=== PATIENT | female | born 1940 | race Asian ===

== ENCOUNTER 2017-04-29 01:02 | Emergency (ER) | payer OTHER ==
[2017-04-29] MEDS ORDERED: ACETAMINOPHEN 325 MG TABLET (FP) ONE (03:08)
--- NOTE | 2017-04-29 03:34 | PDOC ---
History of Present Illness - General History Source: Patient Exam Limitations: No Limitations - History of Present Illness Initial Comments: 04/29/17 03:43 The patient is a 76 year old female, with a significant past medical history of diabetes, hypertension, cardiac disorder, hypercholesterolemia who presents to the emergency department with L ribcage pain s/p mechanical fall. Patient reports falling 2 days ago and since then has been experiencing this pain. Patient reports rib pain is exacerbated upon movement and deep inspiration. Patient denies taking any medication for relief and presents to the ED for further evaluation. Patient denies any head trauma, other injuries. PCP: Rashmi <Rossy Germain - Last Filed: 04/29/17 03:43> - General History Source: Patient <Hernan Caro - Last Filed: 04/29/17 05:25> - General Stated Complaint: PAIN ON LEFT SIDE Time Seen by Provider: 04/29/17 03:28 Past History <Rossy Germain - Last Filed: 04/29/17 03:43> - Past Medical History Anemia: No Asthma: No Cancer: No Cardiac Disorders: Yes CVA: No COPD: No CHF: No Diabetes: Yes GI Disorders: No Disorders: No HTN: Yes Hypercholesterolemia: Yes Liver Disease: No Seizures: No Thyroid Disease: No - Surgical History Abdominal Surgery: Yes Appendectomy: No Cardiac Surgery: Yes ([facility] [place] 1993) Cholecystectomy: No Lung Surgery: No Neurologic Surgery: No Orthopedic Surgery: No - Suicide/Smoking/Psychosocial Hx Smoking History: Never smoked Have you smoked in the past 12 months: No Hx Alcohol Use: No Drug/Substance Use Hx: No Substance Use Type: None Hx Substance Use Treatment: No <Hernan Caro - Last Filed: 04/29/17 05:25> - Past Medical History Allergies/Adverse Reactions: Allergies Allergy/AdvReac Type Severity Reaction Status Date / Time No Known Allergies Allergy Verified 09/03/15 05:06 Home Medications: Ambulatory Orders Alendronate Sodium 70 mg PO ASDIR 08/19/15 Ezetimibe [Zetia] 10 mg PO DAILY 08/19/15 Glimepiride 4 mg PO DAILY 08/19/15 Metformin HCl 500 mg PO TID 08/19/15 Metoprolol Succinate [Toprol XL -] 25 mg PO DAILY 08/19/15 Ranolazine [Ranexa -] 500 mg PO BID 08/19/15 Valsartan 40 mg PO DAILY 08/19/15 Ondansetron [Zofran -] 4 mg PO BID PRN #10 tablet 09/03/15 Ibuprofen [Motrin] 600 mg PO TID #30 tablet 04/29/17 Oxycodone HCl/Acetaminophen [Percocet 5-325 mg Tablet] 1 - 2 tab PO Q6H #20 tablet MDD 4 04/29/17 Review of Systems - Review of Systems Able to Perform ROS?: Yes Comments:: 04/29/17 03:43 CONSTITUTIONAL: Absent: fever, chills, diaphoresis, generalized weakness, malaise, loss of appetite HEENT: Absent: rhinorrhea, nasal congestion, throat pain, throat swelling, difficulty swallowing, mouth swelling, ear pain, eye pain, visual Changes CARDIOVASCULAR: Absent: chest pain, syncope, palpitations, irregular heart rate, lightheadedness , peripheral edema RESPIRATORY: Absent: cough, shortness of breath, dyspnea with exertion, orthopnea, wheezing, stridor, hemoptysis GASTROINTESTINAL: Absent: abdominal pain, abdominal distension, nausea, vomiting, diarrhea, constipation, melena, hematochezia GENITOURINARY: Absent: dysuria, frequency, urgency, hesitancy, hematuria, flank pain, genital pain MUSCULOSKELETAL: +L ribcage pain. Absent: myalgia, arthralgia, joint swelling SKIN: Absent: rash, itching, pallor HEMATOLOGIC/IMMUNOLOGIC: Absent: easy bleeding, easy bruising, lymphadenopathy, frequent infections ENDOCRINE: Absent: unexplained weight gain, unexplained weight loss, heat intolerance, cold intolerance NEUROLOGIC: Absent: headache, focal weakness or paresthesias, dizziness, unsteady gait, seizure, mental status changes, bladder or bowel incontinence PSYCHIATRIC: Absent: anxiety, depression, suicidal or homicidal ideation, hallucinations. <Rossy Germain - Last Filed: 04/29/17 03:43> *Physical Exam - Vital Signs Last Vital Signs Temp Pulse Resp BP Pulse Ox 98.5 F 74 18 133/75 100 04/29/17 03:35 04/29/17 03:35 04/29/17 03:35 04/29/17 03:35 04/29/17 03:35 - Physical Exam Comments: 04/29/17 03:43 GENERAL: Well developed, well nourished. Awake and alert. In no acute distress. HEENT: Normocephalic, atraumatic. PERRLA, EOMI. No conjunctival pallor. Sclerae are non -icteric. Moist mucous membranes. Oropharynx is clear. NECK: Supple. Full ROM. No JVD. Carotid pulses 2+ and symmetric, without bruits. No thyromegaly. No lymphadenopathy. CARDIOVASCULAR: Regular rate and rhythm. No murmurs, rubs, or gallops. Distal pulses are 2+ and symmetric. PULMONARY: No evidence of respiratory distress. Lungs clear to auscultation bilaterally. No wheezing, rales or rhonchi. ABDOMINAL: Soft. Non-tender. Non-distended. No rebound or guarding. No organomegaly. Normoactive bowel sounds. MUSCULOSKELETAL: +Tender on lower L anterior ribs. Normal range of motion at all joints. No bony deformities or tenderness. No CVA tenderness. No pelvic rock. EXTREMITIES: No cyanosis. No clubbing. No edema. No calf tenderness. SKIN: Warm and dry. Normal capillary refill. No rashes. No jaundice. NEUROLOGICAL: Alert, awake, appropriate. Cranial nerves 2-12 intact. No deficits to light touch and temperature in face, upper extremities and lower extremities. No motor deficits in the in face, upper extremities and lower extremities. Normoreflexic in the upper and lower extremities. Normal speech. Toes are downgoing bilaterally. Gait is normal without ataxia. PSYCHIATRIC: Cooperative. Good eye contact. Appropriate mood and affect. <Rossy Germain - Last Filed: 04/29/17 03:43> ED Treatment Course - LABORATORY CBC & Chemistry Diagram: 04/29/17 04:40 04/29/17 03:45 <Hernan Caro - Last Filed: 04/29/17 05:25> Medical Decision Making - Medical Decision Making 04/29/17 05:25 Dr. Caro: The scribe's documentation has been prepared under my direction and personally reviewed by me in its entirery. I confirm that the note above accurately reflects all work, treatment, procedures, and medical decision making performed by me. <Hernan Caro - Last Filed: 04/29/17 05:25> *DC/Admit/Observation/Transfer - Attestations Scribe Attestion: 04/29/17 03:43 Documentation prepared by Rossy Germain, acting as biomedical equipment support specialist for Hernan Caro DO. <Rossy Germain - Last Filed: 04/29/17 03:43> - Discharge Dispostion Admit: No <Hernan Caro - Last Filed: 04/29/17 05:25> Diagnosis at time of Disposition: Closed rib fracture Qualifiers: Encounter type: initial encounter Rib fracture type: single rib Laterality: left Qualified Code(s): S22.32XA - Fracture of one rib, left side, initial encounter for closed fracture; S22.32XA - Fracture of one rib, left side, initial encounter for closed fracture - Discharge Dispostion Disposition: HOME Condition at time of disposition: Stable - Prescriptions Prescriptions: Oxycodone HCl/Acetaminophen [Percocet 5-325 mg Tablet] 1 - 2 tab PO Q6H #20 tablet MDD 4 - Referrals Referrals: Aisha Hoskins MD [Primary Care Provider] - - Patient Instructions Printed Discharge Instructions: DI for Rib Fracture Additional Instructions: take medication as directed. Occasionally take a deep breath to prevent a pneumonia. Return as needed or follow up with your docotr
[2017-04-29] MEDS ORDERED: morphine CARPU-JECT 2 MG/1 ML DISP.SYRIN IVPUSH ONE (03:35)
[2017-04-29] MEDS ORDERED: ONDANSETRON 4 MG/2 ML VIAL IVPUSH STA (03:35)
[2017-04-29 03:41] VITALS: BP 133/75; PULSE 74; TEMP 98.5; BMI 21.9
[2017-04-29] MEDS ORDERED: morphine CARPU-JECT 10 MG/1 ML DISP.SYRIN ONE (03:44)
[2017-04-29] MEDS ORDERED: ONDANSETRON 4 MG/2 ML VIAL ONE (03:46)
[2017-04-29 04:18] LABS: ALBUMIN 3.6 g/dl (3.4-5.0); ALK PHOS 61 U/L (45-117); ANION GAP 15 (8-16); BILIRUBIN,TOTAL 0.2 mg/dL (0.2-1.0); CALCIUM 8.5 mg/dL (8.5-10.1); CO2 20 mmol/L (21-32); CREATININE 0.9 mg/dL (0.55-1.02); GLUCOSE,RANDOM 182 mg/dL (74-106); SGPT/ALT 19 U/L (12-78); TOT PROT 6.6 g/dl (6.4-8.2)
[2017-04-29 04:21] LABS: SGOT/AST 18 U/L (15-37)
[2017-04-29 05:03] LABS: BASOPHIL 0.6 % (0-2.0); EOSINOPHIL 1.7 % (0-4.5); MCH 32.2 pg (25.7-33.7); MCHC 34.2 g/dl (32.0-36.0); MEAN CELL VOLUME 94.2 fl (80-96); MEAN PLT VOLUME 8.5 fl (7.5-11.1); NEUTROPHILS 63.1 % (42.8-82.8); PLATELET COUNT 207 K/MM3 (134-434); RDW 12.5 % (11.6-15.6); WHITE BLOOD COUNT 7.6 K/mm3 (4.0-10.0)
[2017-04-29 05:14] LABS: INR 0.89 (0.82-1.09); PROTHROMBIN TIME (PATIENT) 10.1 SEC (9.98-11.88)
--- NOTE | 2017-05-02 09:09 | EKG ---
Test Reason : Blood Pressure : / mmHG Vent. Rate : 074 BPM Atrial Rate : 074 BPM P-R Int : 000 ms QRS Dur : 094 ms QT Int : 396 ms P-R-T Axes : -23 -14 045 degrees QTc Int : 439 ms SINUS RHYTHM WITH SHORT OH POSSIBLE ANTERIOR INFARCT , AGE UNDETERMINED ABNORMAL ECG WHEN COMPARED WITH ECG OF 19-AUG-2015 11:19, [place] INTERVAL HAS DECREASED INCOMPLETE RIGHT BUNDLE BRANCH BLOCK IS NO LONGER PRESENT NONSPECIFIC T WAVE ABNORMALITY HAS REPLACED INVERTED T WAVES IN INFERIOR LEADS Confirmed by JORGE LEMON, TRACI ([id number]) on 05/02/2017 9:08:30 AM Referred By: Confirmed By:TRACI PATEL MD
== END 2017-04-29 05:50 | disposition home or self-care (01) ==
LOC: JER 01:02
PROC: 3E033NZ Introduction of Analgesics, Hypnotics, Sedatives into Peripheral Vein, Percutaneous Approach (ICD-10-PCS; principal; 2017-04-29)
PROC: 3E033GC Introduction of Other Therapeutic Substance into Peripheral Vein, Percutaneous Approach (ICD-10-PCS; 2017-04-29)
DX: S22.32XA Fracture of one rib, left side, initial encounter for closed fracture (principal); W19.XXXA Unspecified fall, initial encounter; Y93.89 Activity, other specified; Y92.89 Other specified places as the place of occurrence of the external cause; Y99.8 Other external cause status; I25.10 Atherosclerotic heart disease of native coronary artery without angina pectoris; I10 Essential (primary) hypertension; Z95.1 Presence of aortocoronary bypass graft; E11.9 Type 2 diabetes mellitus without complications; Z79.84 Long term (current) use of oral hypoglycemic drugs; E78.00 Pure hypercholesterolemia, unspecified
CPT/HCPCS: 36415; 71250-TC; 74176-TC; 80053; 85025; 85610; 93005; 93010; 99281-25

== ENCOUNTER → 2023-12-09 | Day surgery (SDC) | payer OTHER | END | disposition home or self-care (01) | LOC: JRADIR 10:13 | PROVIDERS: ATTEND Internal Medicine Endocrinology, Diabetes & Metabolism | PROC: 0GBG3ZX Excision of Left Thyroid Gland Lobe, Percutaneous Approach, Diagnostic (ICD-10-PCS; principal; 2023-12-09) | DX: E04.1 Nontoxic single thyroid nodule (principal) | CPT/HCPCS: 10005; 76942; 88173; 88305-TC ==

== ENCOUNTER 2024-02-29 22:17 | Observation (INO) | payer OTHER ==
[2024-02-29 22:24] VITALS: BMI 19.8
[2024-02-29] MEDS ORDERED: LABETALOL HCL 20 MG/4 ML VIAL ONE (23:03)
[2024-02-29 23:25] LABS: BASO % 0.4 % (0-2.0); EOS % 0.4 % (0-4.5); HEMATOCRIT 38.8 % (32.4-45.2); HEMOGLOBIN 13.2 GM/dL (10.7-15.3); LYMPH % 12.2 % (8-40); MCH 33.1 pg (25.7-33.7); MCHC 34.2 g/dl (32.0-36.0); MEAN CELL VOLUME 96.7 fl (80-96); MEAN PLT VOLUME 8.7 fl (7.5-11.1); MONO % 5.6 % (3.8-10.2); NEUT % 81.4 % (42.8-82.8); PLATELET COUNT 222 10^3/uL (134-434); RBC 4.01 M/mm3 (3.60-5.2); RDW 12.3 % (11.6-15.6)
[2024-02-29 23:38] LABS: INR 1.04 (0.83-1.09); PROTHROMBIN TIME (PATIENT) 11.9 SEC (9.7-13.0)
[2024-02-29 23:39] LABS: POTASSIUM 4.4 mmol/L (3.5-5.1)
[2024-02-29 23:40] LABS: ACTIVATED PTT 32.2 SECONDS (25.2-36.5)
[2024-02-29 23:41] LABS: CALCIUM 9.2 mg/dL (8.5-10.1)
[2024-02-29 23:42] LABS: ALBUMIN 4.1 g/dl (3.4-5.0); BLOOD UREA NITROGEN 8.8 mg/dL (7-18)
[2024-02-29 23:45] LABS: CREATININE 0.9 mg/dL (0.55-1.3)
[2024-02-29 23:46] LABS: BILIRUBIN,TOTAL 0.8 mg/dL (0.2-1); TOT PROT 7.1 g/dl (6.4-8.2)
[2024-03-01] MEDS: LABETALOL HCL 5 MG/1 ML (100MG/20 ML VIAL) IVPUSH ONE (00:05)
[2024-03-01] MEDS ORDERED: MAGNESIUM SULFATE IN WATER 2 GM/50 ML IVPB IVPB ONE (06:34)
[2024-03-01] MEDS: MAGNESIUM SULF 50% (8.12 MEQ/2 ML-1 GM VIAL) IVPB ONE (06:49)
[2024-03-01] MEDS: SODIUM CHLORIDE 1,000 ML IV SCH (06:49)
[2024-03-01] MEDS: INSULIN ASPART SLIDING SCALE (NOVOLOG) 1 VIAL SQ SCH (07:48)
[2024-03-01] MEDS: LEVOTHYROXINE NA 25 MCG TABLET (FP) PO SCH (07:48)
[2024-03-01 08:18] LABS: HEMATOCRIT 37.7 % (32.4-45.2); HEMOGLOBIN 12.9 GM/dL (10.7-15.3); MCH 33.2 pg (25.7-33.7); MCHC 34.1 g/dl (32.0-36.0); MEAN CELL VOLUME 97.4 fl (80-96); MEAN PLT VOLUME 8.8 fl (7.5-11.1); PLATELET COUNT 221 10^3/uL (134-434); RBC 3.87 M/mm3 (3.60-5.2); RDW 12.2 % (11.6-15.6); WHITE BLOOD COUNT 6.8 K/mm3 (4.0-10.0)
[2024-03-01 08:22] LABS: POTASSIUM 4.1 mmol/L (3.5-5.1)
[2024-03-01 08:42] LABS: CALCIUM 9.2 mg/dL (8.5-10.1)
[2024-03-01 08:43] LABS: ALBUMIN 3.8 g/dl (3.4-5.0); MAGNESIUM 1.8 mg/dL (1.8-2.4)
[2024-03-01 08:46] LABS: CREATININE 0.8 mg/dL (0.55-1.3); PHOSPHOROUS 3.5 mg/dL (2.5-4.9)
[2024-03-01 08:47] LABS: BILIRUBIN,TOTAL 0.8 mg/dL (0.2-1); TOT PROT 6.5 g/dl (6.4-8.2)
[2024-03-01 08:51] LABS: CHOLESTEROL 163 mg/dL (50-200)
[2024-03-01 08:53] LABS: LDL CHOLESTEROL (ONLY SJRH) 74 mg/dL (5-100)
[2024-03-01 08:54] LABS: HDL CHOLESTEROL 75 mg/dL (40-60)
[2024-03-01] MEDS: APIXABAN 5 MG TABLET PO SCH (09:06)
[2024-03-01] MEDS: metoPROLOL SUCCINATE 25 MG TAB.SR.24H (FP) PO SCH (09:06)
[2024-03-01] MEDS: LOSARTAN POTASSIUM 50 MG TABLET PO SCH (09:06)
[2024-03-01 09:11] LABS: URINE APPEARANCE Clear; URINE BILIRUBIN Negative (NEGATIVE); URINE COLOR Yellow; URINE GLUCOSE (UA) 250 (NEGATIVE); URINE KETONE Trace (NEGATIVE); URINE LEUK ESTERASE Negative (NEGATIVE); URINE NITRITE Negative (NEGATIVE); URINE PROTEIN Trace (NEGATIVE)
[2024-03-01 09:12] LABS: EPI CELLS 10 /uL (0-25.1); HYALINE CASTS 0 /uL (0-3.1); URINE BACTERIA 28 /uL (0-1359); URINE RBC 18 /uL (0-23.9); URINE WBC 31 /uL (0-25.8)
[2024-03-01] MEDS ORDERED: ENOXAPARIN NA (PORCINE) 40 MG/0.4 ML DISP.SYRIN SQ SCH (10:00)
[2024-03-01] MEDS: AMIODARONE HCL 100 MG TABLET PO SCH (10:36)
[2024-03-01] MEDS: DONEPEZIL HCL 5 MG TABLET (FP) PO SCH (22:26)
[2024-03-02 08:27] LABS: POTASSIUM 3.8 mmol/L (3.5-5.1)
[2024-03-02 08:30] LABS: BLOOD UREA NITROGEN 12.5 mg/dL (7-18); CALCIUM 8.5 mg/dL (8.5-10.1)
[2024-03-02] MEDS: EZETIMIBE 10 MG TABLET (FP) PO SCH (10:34)
[2024-03-02] MEDS: APIXABAN 2.5 MG TABLET PO SCH (22:49)
[2024-03-03 08:37] LABS: BASO % 0.7 % (0-2.0); EOS % 0.6 % (0-4.5); HEMATOCRIT 38.8 % (32.4-45.2); HEMOGLOBIN 13.2 GM/dL (10.7-15.3); LYMPH % 26.7 % (8-40); MCH 33.3 pg (25.7-33.7); MCHC 33.9 g/dl (32.0-36.0); MEAN PLT VOLUME 8.5 fl (7.5-11.1); MONO % 8.2 % (3.8-10.2); NEUT % 63.8 % (42.8-82.8); PLATELET COUNT 227 10^3/uL (134-434); RBC 3.96 M/mm3 (3.60-5.2); RDW 12.2 % (11.6-15.6); WHITE BLOOD COUNT 6.2 K/mm3 (4.0-10.0)
[2024-03-03 08:54] LABS: POTASSIUM 3.8 mmol/L (3.5-5.1)
[2024-03-03 09:06] LABS: CALCIUM 9.2 mg/dL (8.5-10.1)
[2024-03-03 09:07] LABS: ALBUMIN 3.8 g/dl (3.4-5.0); BLOOD UREA NITROGEN 13.3 mg/dL (7-18)
[2024-03-03 09:10] LABS: CREATININE 0.8 mg/dL (0.55-1.3)
[2024-03-03 09:11] LABS: BILIRUBIN,TOTAL 0.5 mg/dL (0.2-1); TOT PROT 6.8 g/dl (6.4-8.2)
[2024-03-04 08:13] LABS: HEMATOCRIT 34.8 % (32.4-45.2); MCH 33.6 pg (25.7-33.7); MCHC 34.4 g/dl (32.0-36.0); MEAN CELL VOLUME 97.7 fl (80-96); PLATELET COUNT 206 10^3/uL (134-434); RBC 3.56 M/mm3 (3.60-5.2); RDW 12.1 % (11.6-15.6); WHITE BLOOD COUNT 6.5 K/mm3 (4.0-10.0)
[2024-03-04 08:21] LABS: POTASSIUM 4.7 mmol/L (3.5-5.1)
[2024-03-04 08:23] LABS: BLOOD UREA NITROGEN 15.9 mg/dL (7-18); CALCIUM 9.1 mg/dL (8.5-10.1)
[2024-03-04 08:36] LABS: CREATININE 0.7 mg/dL (0.55-1.3)
[2024-03-04 08:48] VITALS: RESP 16
[2024-03-04 15:07] VITALS: BP 147/60; PULSE 60; TEMP 98.2
== END 2024-03-04 18:01 | disposition home or self-care (01) ==
LOC: JER 22:17 → INTOOBSV 03-01 04:27 → UNDOADMOB 03-01 04:27 → JERBED 03-01 04:27 → J4W 03-01 06:52 → JERBED 03-01 06:52 → J4W 03-01 13:35 → JERBED 03-01 13:35
PROVIDERS: ADMIT Internal Medicine; ATTEND Internal Medicine
PROC: 3E013VG Introduction of Insulin into Subcutaneous Tissue, Percutaneous Approach (ICD-10-PCS; principal; 2024-03-01)
PROC: 3E033GC Introduction of Other Therapeutic Substance into Peripheral Vein, Percutaneous Approach (ICD-10-PCS; 2024-03-01)
PROC: 3E0337Z Introduction of Electrolytic and Water Balance Substance into Peripheral Vein, Percutaneous Approach (ICD-10-PCS; 2024-03-01)
DX: I16.0 Hypertensive urgency (principal); I95.1 Orthostatic hypotension; I11.9 Hypertensive heart disease without heart failure; I25.10 Atherosclerotic heart disease of native coronary artery without angina pectoris; E03.9 Hypothyroidism, unspecified; E11.9 Type 2 diabetes mellitus without complications; E78.5 Hyperlipidemia, unspecified; I48.91 Unspecified atrial fibrillation; Z79.01 Long term (current) use of anticoagulants; Z95.0 Presence of cardiac pacemaker; Z86.73 Personal history of transient ischemic attack (TIA), and cerebral infarction without residual deficits
CPT/HCPCS: 0241U-QW; 36415; 70450-TC; 70496-TC; 70498-TC; 71045-TC-FY; 74177-TC; 76705-TC; 80048; 80053; 80061; 81003; 82962; 83036; 83735; 84100; 84443; 84484; 85025; 85027; 85610; 85730; 86850; 86900; 86901; 87086; 93005; 93010; 93306-TC; 93308; 93880-TC; 96361; 96372; 96374; 97116-GP; 97161-GP; 99285-25; G0378

== ENCOUNTER 2024-06-18 14:14 | Inpatient (IN) | payer OTHER ==
[2024-06-18] MEDS: SODIUM CHLORIDE 0.9% 500 ML INFUS.BAG IV ONE ×2 (15:17→16:37)
[2024-06-18 15:18] LABS: BASO % 0.3 % (0-2.0); EOS % 0.5 % (0-4.5); HEMATOCRIT 33.2 % (32.4-45.2); HEMOGLOBIN 11.1 GM/dL (10.7-15.3); LYMPH % 18.6 % (8-40); MCH 32.6 pg (25.7-33.7); MCHC 33.6 g/dl (32.0-36.0); MONO % 7.3 % (3.8-10.2); NEUT % 73.3 % (42.8-82.8); PLATELET COUNT 182 10^3/uL (134-434); RBC 3.42 M/mm3 (3.60-5.2); RDW 12.7 % (11.6-15.6)
[2024-06-18 15:19] LABS: INR 1.17 (0.83-1.09); PROTHROMBIN TIME (PATIENT) 13.2 SEC (9.7-13.0)
[2024-06-18 15:23] LABS: VENOUS BASE EXCESS -1.3 mmol/L (-2-2); VENOUS O2 SATURATION 18.4 % (70-80); VENOUS PCO2 56.2 mmHg (38-52); VENOUS PH 7.285 (7.310-7.410)
[2024-06-18 15:32] LABS: POTASSIUM 5.2 mmol/L (3.5-5.1)
[2024-06-18 15:34] LABS: CALCIUM 9.5 mg/dL (8.5-10.1)
[2024-06-18 15:35] LABS: ALBUMIN 3.7 g/dl (3.4-5.0); BLOOD UREA NITROGEN 12.2 mg/dL (7-18); MAGNESIUM 1.7 mg/dL (1.8-2.4)
[2024-06-18 15:37] LABS: PHOSPHOROUS 4.2 mg/dL (2.5-4.9)
[2024-06-18 15:39] LABS: BILIRUBIN,TOTAL 0.4 mg/dL (0.2-1); TOT PROT 6.7 g/dl (6.4-8.2)
[2024-06-18] MEDS ORDERED: CALCIUM GLUCONATE 10% - 1,000 MG/10 ML VIAL ONE (16:14)
[2024-06-18] MEDS ORDERED: SODIUM ZIRCONIUM CYCLOSILICATE (LOKELMA) 10 GM PACKET ONE (16:14)
[2024-06-18] MEDS ORDERED: INSULIN REGULAR HUMAN 100 UNITS/ML *VIAL ONE (16:17)
[2024-06-18] MEDS: INSULIN REGULAR HUMAN 100 UNITS/ML *VIAL SQ ONE (16:36)
[2024-06-18] MEDS: SODIUM ZIRCONIUM CYCLOSILICATE (LOKELMA) 5 GM PACKET PO ONE (16:37)
[2024-06-18] MEDS: CALCIUM GLUCONATE 10% - 1,000 MG/10 ML VIAL IVPUSH ONE (16:37)
[2024-06-18 17:13] LABS: LACTIC ACID 2.7 mmol/L (0.4-2.0)
[2024-06-18] MEDS ORDERED: MAGNESIUM SULFATE IN WATER 2 GM/50 ML IVPB IVPB ONE (17:33)
[2024-06-18] MEDS: MAGNESIUM SULFATE IN WATER 2 GM/50 ML IVPB IVPB ONE (18:36)
[2024-06-18 18:48] LABS: VENOUS BASE EXCESS -2.8 mmol/L (-2-2); VENOUS O2 SATURATION 28.8 % (70-80); VENOUS PH 7.263 (7.310-7.410)
[2024-06-18 18:50] LABS: EPI CELLS 28 /uL (0-25.1); HYALINE CASTS 2 /uL (0-3.1); URINE APPEARANCE TURBID; URINE BILIRUBIN 2+ (NEGATIVE); URINE COLOR RED; URINE GLUCOSE (UA) TRACE (NEGATIVE); URINE KETONE NEGATIVE (NEGATIVE); URINE LEUK ESTERASE 3+ (NEGATIVE); URINE NITRITE POSITIVE (NEGATIVE); URINE PROTEIN 2+ (NEGATIVE); URINE RBC 194 /uL (0-23.9); URINE UROBILINOGEN 0.2 mg/dL (0.2-1.0); URINE WBC 2 /uL (0-25.8)
[2024-06-18 19:25] LABS: LACTIC ACID 3.4 mmol/L (0.4-2.0)
[2024-06-18] MEDS ORDERED: CEFTRIAXONE 1 G/50 ML PREMIX 50 ML IVPB ONE (19:43)
[2024-06-18] MEDS: CEFTRIAXONE 1,000 MG in DEXTROSE 5%-WATER - 50 ML IVPB ONE (19:53)
[2024-06-18] MEDS: LACTATED RINGERS SOLUTION 1000 ML INFUS.BAG IV ONE ×2 (19:53→23:40)
[2024-06-18 19:57] LABS: URINE BACTERIA 7.3 /uL (0-1359)
[2024-06-18 21:28] LABS: LACTIC ACID 2.1 mmol/L (0.4-2.0)
[2024-06-18] MEDS ORDERED: DONEPEZIL HCL 5 MG TABLET (FP) ONE (22:03)
[2024-06-18] MEDS ORDERED: HEPARIN NA (PORCINE) 5,000 UNITS/ML 1ML VIAL ONE (22:04)
[2024-06-18] MEDS: DONEPEZIL HCL 5 MG TABLET (FP) PO SCH (22:12)
[2024-06-18] MEDS: RANOLAZINE E.R. 1,000 MG TABLET (FP) PO SCH (22:13)
[2024-06-18] MEDS: HEPARIN NA (PORCINE) 5,000 UNITS/ML 1ML VIAL SQ SCH (22:13)
[2024-06-18] MEDS ORDERED: INSULIN ASPART SLIDING SCALE (NOVOLOG) 1 VIAL SQ ONE ×2 (22:34→22:39)
[2024-06-18] MEDS: INSULIN ASPART SLIDING SCALE (NOVOLOG) 1 VIAL SQ SCH (22:48)
[2024-06-19 06:15] LABS: BASO % 0.3 % (0-2.0); EOS % 0.5 % (0-4.5); HEMATOCRIT 25.2 % (32.4-45.2); HEMOGLOBIN 8.2 GM/dL (10.7-15.3); LYMPH % 24.3 % (8-40); MCH 31.9 pg (25.7-33.7); MCHC 32.4 g/dl (32.0-36.0); MEAN CELL VOLUME 98.3 fl (80-96); MEAN PLT VOLUME 9.2 fl (7.5-11.1); MONO % 8.8 % (3.8-10.2); NEUT % 66.1 % (42.8-82.8); PLATELET COUNT 164 10^3/uL (134-434); RBC 2.57 M/mm3 (3.60-5.2); RDW 12.7 % (11.6-15.6); WHITE BLOOD COUNT 5.6 K/mm3 (4.0-10.0)
[2024-06-19 06:18] LABS: POTASSIUM 4.7 mmol/L (3.5-5.1)
[2024-06-19 06:20] LABS: BLOOD UREA NITROGEN 12.3 mg/dL (7-18); CALCIUM 8.5 mg/dL (8.5-10.1)
[2024-06-19 06:24] LABS: CREATININE 0.8 mg/dL (0.55-1.3)
[2024-06-19] MEDS ORDERED: LEVOTHYROXINE NA 25 MCG TABLET (FP) ONE (07:19)
[2024-06-19] MEDS ORDERED: INSULIN ASPART SLIDING SCALE (NOVOLOG) 1 VIAL SQ ONE ×4 (07:20→17:25)
[2024-06-19] MEDS: LEVOTHYROXINE NA 25 MCG TABLET (FP) PO SCH (07:34)
[2024-06-19] MEDS ORDERED: metoPROLOL SUCCINATE 25 MG TAB.SR.24H (FP) PO ONE (10:00)
[2024-06-19] MEDS: EZETIMIBE 10 MG TABLET (FP) PO SCH (10:04)
[2024-06-19] MEDS: metoPROLOL SUCCINATE 25 MG TAB.SR.24H (FP) PO SCH (10:04)
[2024-06-19] MEDS ORDERED: RANOLAZINE E.R. 500 MG TABLET (FP) ONE ×2 (11:19→22:29)
[2024-06-19] MEDS ORDERED: HEPARIN NA (PORCINE) 5,000 UNITS/ML 1ML VIAL ONE (11:20)
[2024-06-19] MEDS ORDERED: INSULIN (LEVEMIR) 100 UNITS/ML UNITS SQ ONE (15:32)
[2024-06-19] MEDS ORDERED: PANTOPRAZOLE SODIUM 40 MG/100 ML BAG IVPB ONE (15:33)
[2024-06-19] MEDS: INSULIN (LEVEMIR) 100 UNITS/ML UNITS SQ SCH (15:50)
[2024-06-19] MEDS: PANTOPRAZOLE SODIUM 40 MG VIAL IVPUSH SCH (15:50)
[2024-06-19] MEDS: SODIUM CHLORIDE 1,000 ML IV SCH (15:50)
[2024-06-19] MEDS ORDERED: CEFTRIAXONE 1 G/50 ML PREMIX 50 ML IVPB ONE (16:30)
[2024-06-19] MEDS: CEFTRIAXONE 1 G/50 ML PREMIX 50 ML IVPB SCH (17:13)
[2024-06-19] MEDS ORDERED: FAMOTIDINE 20 MG/50 ML IVPB 20 MG/50 ML MG IVPB ONE (17:52)
[2024-06-19] MEDS ORDERED: ONDANSETRON 4 MG/2 ML VIAL ONE (17:52)
[2024-06-19] MEDS ORDERED: ACETAMINOPHEN INJECTION 100 ML ONE (17:52)
[2024-06-19] MEDS ORDERED: LIDOCAINE HCL 2% JELLY 6 ML TP ONE (18:07)
[2024-06-19] MEDS: LIDOCAINE HCL/PF 1% SDV 5ML VIAL INF PRN (18:07)
[2024-06-20] MEDS ORDERED: RANOLAZINE E.R. 500 MG TABLET (FP) ONE ×2 (09:23→21:24)
[2024-06-20] MEDS: AMIODARONE HCL 100 MG TABLET PO SCH (09:33)
[2024-06-20 11:48] LABS: BASO % 0.3 % (0-2.0); EOS % 0.9 % (0-4.5); HEMATOCRIT 21.3 % (32.4-45.2); HEMOGLOBIN 7.1 GM/dL (10.7-15.3); LYMPH % 18.4 % (8-40); MCH 32.7 pg (25.7-33.7); MCHC 33.2 g/dl (32.0-36.0); MEAN CELL VOLUME 98.3 fl (80-96); MEAN PLT VOLUME 9.2 fl (7.5-11.1); MONO % 6.7 % (3.8-10.2); NEUT % 73.7 % (42.8-82.8); PLATELET COUNT 157 10^3/uL (134-434); RBC 2.17 M/mm3 (3.60-5.2); RDW 13.3 % (11.6-15.6); WHITE BLOOD COUNT 6.4 K/mm3 (4.0-10.0)
[2024-06-20 11:56] LABS: POTASSIUM 4.5 mmol/L (3.5-5.1)
[2024-06-20 11:58] VITALS: BMI 18.1
[2024-06-20 12:02] LABS: ALBUMIN 2.8 g/dl (3.4-5.0); BLOOD UREA NITROGEN 6.9 mg/dL (7-18)
[2024-06-20 12:05] LABS: CREATININE 0.8 mg/dL (0.55-1.3)
[2024-06-20 12:06] LABS: BILIRUBIN,TOTAL 0.3 mg/dL (0.2-1)
[2024-06-20 12:07] LABS: TOT PROT 5.2 g/dl (6.4-8.2)
[2024-06-20] MEDS ORDERED: MEROPENEM 1 GM in DEXTROSE 5%-WATER 100 ML IVPB SCH (18:00)
[2024-06-20] MEDS: MEROPENEM-0.9% SODIUM CHLORIDE 1 GM/50 ML BAG IVPB SCH (18:10)
[2024-06-21] MEDS ORDERED: INSULIN (LEVEMIR) 100 UNITS/ML UNITS SQ ONE (06:54)
[2024-06-21 07:59] LABS: BASO % 0.5 % (0-2.0); EOS % 1.7 % (0-4.5); HEMATOCRIT 21.7 % (32.4-45.2); HEMOGLOBIN 7.3 GM/dL (10.7-15.3); LYMPH % 25.3 % (8-40); MCH 31.7 pg (25.7-33.7); MCHC 33.7 g/dl (32.0-36.0); MEAN CELL VOLUME 94.1 fl (80-96); MEAN PLT VOLUME 9.2 fl (7.5-11.1); MONO % 10.9 % (3.8-10.2); NEUT % 61.6 % (42.8-82.8); PLATELET COUNT 136 10^3/uL (134-434); RDW 15.6 % (11.6-15.6); WHITE BLOOD COUNT 5.9 K/mm3 (4.0-10.0)
[2024-06-21] MEDS ORDERED: RANOLAZINE E.R. 500 MG TABLET (FP) ONE ×2 (09:09→21:32)
[2024-06-21] MEDS: MULTIVITAMINS THER W-MINERALS COMBO TABLET (FP) PO SCH (09:15)
[2024-06-21 16:10] LABS: HEMATOCRIT 30.4 % (32.4-45.2); MCH 31.1 pg (25.7-33.7); MCHC 33.1 g/dl (32.0-36.0); MEAN PLT VOLUME 8.8 fl (7.5-11.1); PLATELET COUNT 145 10^3/uL (134-434); RBC 3.23 M/mm3 (3.60-5.2); RDW 15.9 % (11.6-15.6); WHITE BLOOD COUNT 7.3 K/mm3 (4.0-10.0)
[2024-06-21] MEDS: MEROPENEM-0.9% SODIUM CHLORIDE 1 GM/50 ML BAG IVPB SCH (18:13)
[2024-06-22] MEDS ORDERED: INSULIN (LEVEMIR) 100 UNITS/ML UNITS SQ ONE ×2 (07:30→07:34)
[2024-06-22] MEDS ORDERED: INSULIN ASPART SLIDING SCALE (NOVOLOG) 1 VIAL SQ ONE (07:34)
[2024-06-22 08:08] LABS: HEMATOCRIT 28.1 % (32.4-45.2); HEMOGLOBIN 9.6 GM/dL (10.7-15.3); MCH 31.9 pg (25.7-33.7); MEAN CELL VOLUME 93.7 fl (80-96); MEAN PLT VOLUME 9.3 fl (7.5-11.1); PLATELET COUNT 154 10^3/uL (134-434); RDW 15.8 % (11.6-15.6)
[2024-06-22 08:17] LABS: POTASSIUM 3.9 mmol/L (3.5-5.1)
[2024-06-22 08:26] LABS: CALCIUM 8.3 mg/dL (8.5-10.1)
[2024-06-22 08:27] LABS: BLOOD UREA NITROGEN 6.6 mg/dL (7-18)
[2024-06-22 08:30] LABS: CREATININE 0.6 mg/dL (0.55-1.3)
[2024-06-22] MEDS ORDERED: RANOLAZINE E.R. 500 MG TABLET (FP) ONE ×2 (10:53→21:14)
[2024-06-22] MEDS: LOSARTAN POTASSIUM 50 MG TABLET PO SCH ×2 (10:59→17:50)
[2024-06-22] MEDS: ACETAMINOPHEN 1000 MG/100 ML BAG IVPB ONE (17:48)
[2024-06-22] MEDS: metoPROLOL SUCCINATE 25 MG TAB.SR.24H (FP) PO SCH (17:50)
[2024-06-22 22:38] VITALS: BP 161/72; PULSE 68; RESP 16; TEMP 98.1
== END 2024-06-22 22:58 | DRG 690 ==
LOC: JER 14:14 → JERBED 17:35 → J4S 06-19 19:39 → J4W 06-20 20:41 → OBSVTOIN 06-21 13:35
PROVIDERS: ADMIT Internal Medicine; ATTEND Internal Medicine
PROC: 30233N1 Transfusion of Nonautologous Red Blood Cells into Peripheral Vein, Percutaneous Approach (ICD-10-PCS; 2024-06-21)
PROC: 05HC33Z Insertion of Infusion Device into Left Basilic Vein, Percutaneous Approach (ICD-10-PCS; principal; 2024-06-22)
PROC: B54NZZA Ultrasonography of Left Upper Extremity Veins, Guidance (ICD-10-PCS; 2024-06-22)
DX: N39.0 Urinary tract infection, site not specified (principal); E87.20 Acidosis, unspecified; D62 Acute posthemorrhagic anemia; I25.10 Atherosclerotic heart disease of native coronary artery without angina pectoris; Z79.01 Long term (current) use of anticoagulants; E11.9 Type 2 diabetes mellitus without complications; E03.9 Hypothyroidism, unspecified; I10 Essential (primary) hypertension; R55 Syncope and collapse; E87.5 Hyperkalemia; I48.0 Paroxysmal atrial fibrillation; I34.0 Nonrheumatic mitral (valve) insufficiency
CPT/HCPCS: 0241U-QW; 36415; 36430; 70450-TC; 71045-TC-FY; 76775-TC; 76856-TC; 80048; 80053; 80061; 81003; 82010; 82272; 82550; 82803; 82962; 83036; 83605; 83735; 84100; 84439; 84443; 84484; 85025; 85027; 85610; 85730; 86850; 86900; 86901; 86922; 87086; 87186; 93005; 93010; 97116-GP; 97161-GP; 99285-25; G0378; J0131; J1644; P9058

== ENCOUNTER 2024-07-31 15:42 | Emergency (ER) | payer OTHER ==
[2024-07-31 16:26] VITALS: BP 148/79; PULSE 74; RESP 18; TEMP 97.7; BMI 18.6
== END 2024-07-31 21:41 | disposition home or self-care (01) ==
LOC: JER 15:42
DX: K62.3 Rectal prolapse (principal)
CPT/HCPCS: 99283-25

== ENCOUNTER 2024-09-10 04:29 | Observation (INO) | payer OTHER ==
[2024-09-10] MEDS ORDERED: GLUCAGON 1 MG KIT ONE (04:46)
[2024-09-10] MEDS ORDERED: DEXTROSE 50%-WATER 25 GM/50 ML DISP.SYRIN ONE (05:05)
[2024-09-10] MEDS: GLUCAGON 1 MG KIT IM ONE (05:17)
[2024-09-10] MEDS: DEXTROSE 50%-WATER - 25 GM/50 ML VIAL IVPUSH ONE (05:17)
[2024-09-10 05:43] LABS: VENOUS BASE EXCESS -2.4 mmol/L (-2-2); VENOUS O2 SATURATION 58.9 % (70-80); VENOUS PCO2 52.4 mmHg (38-52); VENOUS PH 7.291 (7.310-7.410)
[2024-09-10 06:19] LABS: BASO % 0.7 % (0-2.0); EOS % 0.5 % (0-4.5); HEMATOCRIT 35.3 % (32.4-45.2); HEMOGLOBIN 11.6 GM/dL (10.7-15.3); LYMPH % 29.1 % (8-40); MCH 31.1 pg (25.7-33.7); MCHC 32.8 g/dl (32.0-36.0); MEAN CELL VOLUME 94.7 fl (80-96); MONO % 8.9 % (3.8-10.2); NEUT % 60.8 % (42.8-82.8); PLATELET COUNT 379 10^3/uL (134-434); RBC 3.73 M/mm3 (3.60-5.2); WHITE BLOOD COUNT 4.8 K/mm3 (4.0-10.0)
[2024-09-10 06:42] LABS: POTASSIUM 4.7 mmol/L (3.5-5.1)
[2024-09-10 06:44] LABS: CALCIUM 8.5 mg/dL (8.5-10.1)
[2024-09-10 06:45] LABS: ALBUMIN 2.6 g/dl (3.4-5.0); BLOOD UREA NITROGEN 8.6 mg/dL (7-18); MAGNESIUM 1.6 mg/dL (1.8-2.4)
[2024-09-10 06:48] LABS: CREATININE 0.7 mg/dL (0.55-1.3)
[2024-09-10 06:49] LABS: BILIRUBIN,TOTAL 0.6 mg/dL (0.2-1); TOT PROT 5.9 g/dl (6.4-8.2)
[2024-09-10] MEDS ORDERED: MAGNESIUM SULFATE IN WATER 2 GM/50 ML IVPB IVPB ONE (07:00)
[2024-09-10] MEDS: MAGNESIUM SULFATE IN WATER 2 GM/50 ML IVPB IVPB ONE (07:08)
[2024-09-10] MEDS ORDERED: DOCUSATE SODIUM 100 MG CAPSULE (FP) PO PRN (08:05)
[2024-09-10] MEDS ORDERED: metoPROLOL SUCCINATE 25 MG TAB.SR.24H (FP) PO ONE (09:09)
[2024-09-10] MEDS ORDERED: AMIODARONE HCL 200 MG TABLET ONE (09:09)
[2024-09-10] MEDS ORDERED: RANOLAZINE E.R. 500 MG TABLET (FP) ONE ×2 (09:09→22:25)
[2024-09-10] MEDS ORDERED: LOSARTAN POTASSIUM 50 MG TABLET ONE (09:09)
[2024-09-10] MEDS ORDERED: LEVOTHYROXINE NA 25 MCG TABLET (FP) ONE (09:09)
[2024-09-10] MEDS ORDERED: APIXABAN 2.5 MG TABLET ONE (09:09)
[2024-09-10] MEDS: SODIUM CHLORIDE 1,000 ML IV SCH (09:11)
[2024-09-10] MEDS: AMIODARONE HCL 100 MG TABLET PO SCH (09:11)
[2024-09-10] MEDS: APIXABAN 2.5 MG TABLET PO SCH (09:11)
[2024-09-10] MEDS: LOSARTAN POTASSIUM 50 MG TABLET PO SCH (09:11)
[2024-09-10] MEDS: EZETIMIBE 10 MG TABLET (FP) PO SCH (09:12)
[2024-09-10] MEDS: RANOLAZINE E.R. 1,000 MG TABLET (FP) PO SCH (09:12)
[2024-09-10] MEDS: metoPROLOL SUCCINATE 25 MG TAB.SR.24H (FP) PO SCH (09:12)
[2024-09-10] MEDS: LEVOTHYROXINE NA 25 MCG TABLET (FP) PO SCH (09:12)
[2024-09-10] MEDS ORDERED: ENOXAPARIN NA (PORCINE) 40 MG/0.4 ML DISP.SYRIN SQ SCH (10:00)
[2024-09-10 10:14] LABS: EPI CELLS 8 /uL (0-25.1); HYALINE CASTS 0 /uL (0-3.1); PH,URINE 6.5 (5.0-8.0); URINE APPEARANCE CLEAR; URINE BACTERIA 9 /uL (0-1359); URINE BILIRUBIN NEGATIVE (NEGATIVE); URINE COLOR YELLOW; URINE GLUCOSE (UA) 3+ (NEGATIVE); URINE KETONE NEGATIVE (NEGATIVE); URINE LEUK ESTERASE 2+ (NEGATIVE); URINE NITRITE NEGATIVE (NEGATIVE); URINE PROTEIN NEGATIVE (NEGATIVE); URINE UROBILINOGEN 0.2 mg/dL (0.2-1.0); URINE WBC 41 /uL (0-25.8)
[2024-09-10] MEDS: INSULIN ASPART SLIDING SCALE (NOVOLOG) 1 VIAL SQ SCH ×2 (10:55→17:21)
[2024-09-10] MEDS: FAMOTIDINE 20 MG TABLET PO SCH (18:28)
[2024-09-10] MEDS: PANTOPRAZOLE SODIUM 40 MG VIAL IVPUSH SCH (18:28)
[2024-09-10] MEDS: DEXTROSE 50%-WATER 25 GM/50 ML DISP.SYRIN IVPUSH ONE (18:29)
[2024-09-10] MEDS: MIRTAZAPINE 15 MG TABLET (FP) PO SCH (22:38)
[2024-09-11 08:56] LABS: HEMATOCRIT 32.1 % (32.4-45.2); HEMOGLOBIN 10.6 GM/dL (10.7-15.3); MCH 31.3 pg (25.7-33.7); MCHC 32.9 g/dl (32.0-36.0); MEAN CELL VOLUME 95.2 fl (80-96); PLATELET COUNT 368 10^3/uL (134-434); RBC 3.38 M/mm3 (3.60-5.2); WHITE BLOOD COUNT 6.3 K/mm3 (4.0-10.0)
[2024-09-11 09:12] LABS: POTASSIUM 4.4 mmol/L (3.5-5.1)
[2024-09-11 09:14] LABS: BLOOD UREA NITROGEN 8.4 mg/dL (7-18)
[2024-09-11 09:15] LABS: CALCIUM 8.3 mg/dL (8.5-10.1); MAGNESIUM 1.8 mg/dL (1.8-2.4)
[2024-09-11 09:17] LABS: PHOSPHOROUS 2.9 mg/dL (2.5-4.9)
[2024-09-11] MEDS ORDERED: RANOLAZINE E.R. 500 MG TABLET (FP) ONE ×2 (09:29→21:09)
[2024-09-11 09:35] LABS: CREATININE 0.8 mg/dL (0.55-1.3)
[2024-09-11] MEDS ORDERED: ONDANSETRON 4 MG/2 ML VIAL IVPUSH PRN (14:27)
[2024-09-11] MEDS: ONDANSETRON 4 MG/2 ML VIAL IVPUSH ONE (14:45)
[2024-09-11 17:02] VITALS: BMI 16.2
[2024-09-12 08:26] LABS: EOS % 2.1 % (0-4.5); HEMATOCRIT 33.5 % (32.4-45.2); HEMOGLOBIN 11.3 GM/dL (10.7-15.3); LYMPH % 27.5 % (8-40); MCH 31.6 pg (25.7-33.7); MCHC 33.6 g/dl (32.0-36.0); MEAN CELL VOLUME 93.9 fl (80-96); MEAN PLT VOLUME 8.7 fl (7.5-11.1); MONO % 7.4 % (3.8-10.2); PLATELET COUNT 320 10^3/uL (134-434); RBC 3.57 M/mm3 (3.60-5.2); RDW 19.4 % (11.6-15.6); WHITE BLOOD COUNT 4.7 K/mm3 (4.0-10.0)
[2024-09-12 08:28] LABS: POTASSIUM 4.3 mmol/L (3.5-5.1)
[2024-09-12 08:32] LABS: ALBUMIN 2.9 g/dl (3.4-5.0); BLOOD UREA NITROGEN 4.4 mg/dL (7-18); CALCIUM 8.3 mg/dL (8.5-10.1); MAGNESIUM 1.5 mg/dL (1.8-2.4)
[2024-09-12 08:35] LABS: CREATININE 0.6 mg/dL (0.55-1.3)
[2024-09-12 08:36] LABS: PHOSPHOROUS 2.5 mg/dL (2.5-4.9)
[2024-09-12 08:37] LABS: BILIRUBIN,TOTAL 0.8 mg/dL (0.2-1)
[2024-09-12] MEDS ORDERED: RANOLAZINE E.R. 500 MG TABLET (FP) ONE ×2 (10:17→21:03)
[2024-09-12] MEDS: MAGNESIUM 2GM/50ML STERILE WATER IVPB IVPB ONE (13:46)
[2024-09-12 16:48] LABS: EPI CELLS 2 /uL (0-25.1); HYALINE CASTS 0 /uL (0-3.1); URINE APPEARANCE CLEAR; URINE BACTERIA 2 /uL (0-1359); URINE BILIRUBIN NEGATIVE (NEGATIVE); URINE COLOR YELLOW; URINE GLUCOSE (UA) TRACE (NEGATIVE); URINE KETONE NEGATIVE (NEGATIVE); URINE LEUK ESTERASE TRACE (NEGATIVE); URINE NITRITE NEGATIVE (NEGATIVE); URINE PROTEIN NEGATIVE (NEGATIVE); URINE RBC 22 /uL (0-23.9); URINE UROBILINOGEN 0.2 mg/dL (0.2-1.0); URINE WBC 12 /uL (0-25.8)
[2024-09-12] MEDS: POLYETHYLENE GLYCOL (HEALTHYLAX) 3350 17 GM PACKET PO SCH (17:58)
[2024-09-12] MEDS ORDERED: INSULIN ASPART SLIDING SCALE (NOVOLOG) 1 VIAL SQ ONE (18:12)
[2024-09-13 09:15] LABS: BASO % 1.3 % (0-2.0); EOS % 1.9 % (0-4.5); HEMATOCRIT 30.4 % (32.4-45.2); HEMOGLOBIN 9.8 GM/dL (10.7-15.3); MCH 30.7 pg (25.7-33.7); MCHC 32.1 g/dl (32.0-36.0); MEAN CELL VOLUME 95.7 fl (80-96); MEAN PLT VOLUME 8.3 fl (7.5-11.1); MONO % 8.3 % (3.8-10.2); NEUT % 60.5 % (42.8-82.8); PLATELET COUNT 311 10^3/uL (134-434); RBC 3.18 M/mm3 (3.60-5.2); RDW 19.6 % (11.6-15.6); WHITE BLOOD COUNT 4.2 K/mm3 (4.0-10.0)
[2024-09-13 09:44] LABS: POTASSIUM 3.9 mmol/L (3.5-5.1)
[2024-09-13 09:54] LABS: ALBUMIN 2.6 g/dl (3.4-5.0); CALCIUM 8.4 mg/dL (8.5-10.1); MAGNESIUM 1.8 mg/dL (1.8-2.4)
[2024-09-13 09:57] LABS: BLOOD UREA NITROGEN 3.6 mg/dL (7-18); CREATININE 0.5 mg/dL (0.55-1.3); PHOSPHOROUS 2.7 mg/dL (2.5-4.9)
[2024-09-13 09:59] LABS: TOT PROT 5.3 g/dl (6.4-8.2)
[2024-09-13 10:00] LABS: BILIRUBIN,TOTAL 0.6 mg/dL (0.2-1)
[2024-09-13] MEDS ORDERED: RANOLAZINE E.R. 500 MG TABLET (FP) ONE (10:40)
[2024-09-13] MEDS ORDERED: RANOLAZINE E.R. 500 MG TABLET (FP) PO SCH (11:31)
[2024-09-13] MEDS: RANOLAZINE E.R. 500 MG TABLET (FP) PO SCH (11:57)
[2024-09-13 22:03] VITALS: RESP 18
[2024-09-14] MEDS: PANTOPRAZOLE 40 MG TABLET PO SCH (09:24)
[2024-09-14 13:06] VITALS: BP 153/62; PULSE 78; TEMP 98.4
== END 2024-09-14 13:42 | disposition home or self-care (01) ==
LOC: JER 04:29 → JERBED 06:52 → J6S 10:34
PROVIDERS: ADMIT Internal Medicine; ATTEND Internal Medicine
PROC: 3E0337Z Introduction of Electrolytic and Water Balance Substance into Peripheral Vein, Percutaneous Approach (ICD-10-PCS; principal; 2024-09-10)
PROC: 3E023GC Introduction of Other Therapeutic Substance into Muscle, Percutaneous Approach (ICD-10-PCS; 2024-09-10)
PROC: 3E013VG Introduction of Insulin into Subcutaneous Tissue, Percutaneous Approach (ICD-10-PCS; 2024-09-10)
PROC: 3E033GC Introduction of Other Therapeutic Substance into Peripheral Vein, Percutaneous Approach (ICD-10-PCS; 2024-09-10)
DX: E11.649 Type 2 diabetes mellitus with hypoglycemia without coma (principal); R13.10 Dysphagia, unspecified; I48.91 Unspecified atrial fibrillation; I11.9 Hypertensive heart disease without heart failure; Z95.1 Presence of aortocoronary bypass graft; Z79.01 Long term (current) use of anticoagulants; E78.5 Hyperlipidemia, unspecified; Z95.0 Presence of cardiac pacemaker; N39.0 Urinary tract infection, site not specified
CPT/HCPCS: 0241U-QW; 36415; 71045-TC-FY; 72050-TC-FY; 74018-TC-FY; 80048; 80053; 81003; 82306; 82550; 82607; 82803; 82962; 83036; 83690; 83735; 84100; 84439; 84443; 84484; 84681; 85025; 85027; 87086; 87186; 93005; 93010; 96361; 96365; 96372; 96375; 97116-GP; 97162-GP; 99285-25; G0378

== ENCOUNTER 2025-02-22 01:16 | Emergency (ER) | payer OTHER ==
[2025-02-22 01:27] VITALS: TEMP 97.7; BMI 20.3
[2025-02-22 02:57] LABS: ABSOLUTE IMMATURE GRANULOCYTES 0.05 x10^3/uL (0.0-0.031); BASOPHILS # 0.02 x10^3/uL (0.01-0.08); EOSINOPHIL % 0.2 % (0.7-5.8); EOSINOPHILS # 0.02 x10^3/uL (0.04-0.36); MCHC 33.2 g/dl (32.2-35.5); MEAN CELL VOLUME 97.0 fl (79.4-94.8); MEAN PLT VOLUME 10.7 fl (9.4-12.3); MONOCYTE # 0.48 x10^3/uL (0.24-0.86); MONOCYTE % 4.7 % (4.7-12.5); RDW 11.3 % (12.5-17.0)
[2025-02-22] MEDS: METOPROLOL TARTRATE 5 MG/5 ML VIAL IVPUSH ONE (03:04)
[2025-02-22] MEDS ORDERED: METOPROLOL TARTRATE 50 MG TABLET (FP) ONE (03:05)
[2025-02-22 03:08] LABS: INR 1.08 (0.83-1.09); PROTHROMBIN TIME (PATIENT) 11.9 SEC (9.7-13.0)
[2025-02-22 03:11] LABS: ACTIVATED PTT 32.7 SECONDS (25.2-36.5)
[2025-02-22 03:12] VITALS: PULSE 60
[2025-02-22] MEDS: METOPROLOL TARTRATE 50 MG TABLET (FP) PO ONE (03:12)
[2025-02-22 03:15] LABS: URINE APPEARANCE CLEAR; URINE BILIRUBIN NEGATIVE (NEGATIVE); URINE COLOR YELLOW; URINE GLUCOSE (UA) 2+ (NEGATIVE); URINE KETONE TRACE (NEGATIVE); URINE LEUK ESTERASE NEGATIVE (NEGATIVE); URINE NITRITE NEGATIVE (NEGATIVE); URINE PROTEIN NEGATIVE (NEGATIVE); URINE UROBILINOGEN 0.2 mg/dL (0.2-1.0)
[2025-02-22 03:27] LABS: GLUCOSE,RANDOM 266.0 mg/dL (74-106)
[2025-02-22 03:28] LABS: TOT PROT 7.4 g/dl (6.4-8.2)
[2025-02-22 03:30] LABS: ALK PHOS 48.0 U/L (40-150)
[2025-02-22 03:33] LABS: CREATININE 0.48 mg/dL (0.55-1.3); SGOT/AST 35.0 U/L (5-34); SGPT/ALT 10.0 U/L (0-55)
[2025-02-22 03:51] LABS: HIV INTERPRETATION NEGATIVE (NEGATIVE)
[2025-02-22 03:52] LABS: HCV DIAGNOSTIC IN-HOUSE W/RFLX NON-REACTIVE (NONREACTIVE)
[2025-02-22 04:03] LABS: CO2 21.0 mmol/L (21-32)
[2025-02-22 05:04] VITALS: BP 159/64; RESP 14
== END 2025-02-22 05:50 | disposition home or self-care (01) ==
LOC: JER 01:16
DX: I10 Essential (primary) hypertension (principal); R53.1 Weakness; R05.9 Cough, unspecified; R61 Generalized hyperhidrosis
CPT/HCPCS: 36415; 71045-TC-FY; 80053; 81003; 82962; 84484; 85025; 85610; 85730; 86803; 87086; 87389; 87637-QW; 93005; 93010; 99285-25